=== PATIENT | male | born 1940 | race Asian ===

== ENCOUNTER 2016-04-03 22:41 | Emergency (ER) | payer OTHER, MEDICARE ==
[~2016-04-03] VITALS: Ht 172.7 cm; Wt 88.5 kg
[~2016-04-03 22:41] MED LIST: ASPI-1063
[2016-04-03 22:45] VITALS: BP 174/94; PULSE 73; RESP 18; TEMP 97; O2SAT 98
--- NOTE | 2016-04-03 23:05 | NUR ---
Placed in room 04 . Placed on clinical research monitor, blood pressure machine and pulse oximeter. To gown for exam. Side rails up.
--- NOTE | 2016-04-03 23:12 | NUR ---
Patient to ER C/O right side lateral rib pain 8/ radiating to mid chest. Patient states "the pain woke me up, i am scared it is my heart" AAOx4, unlabored breathing, no signs of acute distress.
--- NOTE | 2016-04-03 23:14 | NUR ---
ER MD Vides at bedside for evaluation
[2016-04-03] MEDS ORDERED: HYDROcodone/ACETAMIN 5-325 MG TAB (NORCO/ VICODIN) PO ONE (23:30)
[2016-04-03] MEDS ORDERED: LORazepam 1 MG TABLET PO ONE (23:30)
[2016-04-03 23:42] LABS: BASOPHILS % (AUTO) 0.7 % (0.0-2.0); EOSINOPHILS # (AUTO) 0.2 K/uL (0.0-0.4); EOSINOPHILS % (AUTO) 2.7 % (0.0-4.0); HEMATOCRIT 41.5 % (36-54); LYMPHOCYTES % (AUTO) 30.5 % (20.5-51.5); MEAN CORPUSCULAR HEMOGLOBIN 30 pg (27-31); MEAN CORPUSCULAR HGB CONC 34 % (32-36); MEAN CORPUSCULAR VOLUME 88 fL (79.0-98.0); MONOCYTES # (AUTO) 0.8 K/uL (0.0-1.0); MONOCYTES % (AUTO) 11.9 % (1.7-9.3); NEUTROPHILS # (AUTO) 3.4 K/uL (1.8-7.7); NEUTROPHILS % (AUTO) 54.2 % (40.0-70.0); PLATELET COUNT (AUTO) 191 K/uL (130-430); RED BLOOD CELL COUNT(AUTO) 4.71 MIL/uL (4.2-6.2); RED CELL DISTRIBUTION WIDTH 12.8 % (9.0-15.0); WHITE BLOOD COUNT (AUTO) 6.4 K/uL (4.8-10.8)
[2016-04-03 23:52] LABS: ANION GAP 7 (5-15); CALCIUM 9.2 mg/dL (8.4-11.0); CHLORIDE 103 mmol/L (98-107); CREATININE 0.98 mg/dL (0.55-1.30); GLUCOSE 113 mg/dL (70-99); POTASSIUM 3.4 mmol/L (3.5-5.1); SODIUM SERUM 141 mmol/L (136-145); UREA NITROGEN, BLOOD 20 mg/dL (8-21)
[2016-04-04] LABS: ALANINE AMINOTRANSFERASE 29 U/L (12-78); ALBUMIN 3.8 g/dL (3.4-4.8); ASPARTATE AMINOTRANSFERASE 23 U/L (10-37); TOTAL BILIRUBIN 0.5 mg/dL (0.0-1.0); TOTAL PROTEIN, SERUM 7.6 g/dL (6.4-8.3)
--- NOTE | 2016-04-04 00:23 | NUR ---
Friend at bedside. Patient calm, states "i feel better"
[2016-04-04 00:58] VITALS: BP 133/76; PULSE 65; RESP 17; TEMP 97.8; O2SAT 97
--- NOTE | 2016-04-04 00:58 | NUR ---
Patient given written and verbal discharge instructions and verbalizes understanding. ER MD Vides discussed with patient the results and treatment provided. Given copies of tests performed in ER. Patient in stable condition. ID arm band removed. Rx of motrin & norco given. Patient educated on pain management and to follow up with PMD. Pain Scale 0/10. Opportunity for questions provided and answered.
== END 2016-04-04 00:58 | disposition home or self-care (01) ==
LOC: SED 22:41
DX: I10 Essential (primary) hypertension (principal); F41.9 Anxiety disorder, unspecified; Z79.82 Long term (current) use of aspirin
CPT/HCPCS: 36415; 71010; 80053; 84484; 85025; 93005; 99285

== ENCOUNTER 2019-03-09 19:39 | Emergency (ER) | payer OTHER, MEDICARE ==
[~2019-03-09] VITALS: Ht 172.7 cm; Wt 95.3 kg
[~2019-03-09 19:39] MED LIST changes: -ASPI-1063; +ASPI-1153
[2019-03-09 19:59] VITALS: BP_SYST 150
[2019-03-09 22:25] VITALS: BP_SYST 142
== END 2019-03-09 22:25 | disposition home or self-care (01) ==
LOC: SED 19:39
DX: I10 Essential (primary) hypertension (principal); Z79.82 Long term (current) use of aspirin
CPT/HCPCS: 93005; 99283

== ENCOUNTER 2022-09-15 06:11 | Emergency (ER) | payer OTHER, MEDICARE ==
[~2022-09-15] VITALS: Ht 170.2 cm; Wt 81.6 kg
[~2022-09-15 06:11] MED LIST changes: -ASPI-1153; +ASPI-1393
[2022-09-15 06:23] VITALS: BP_SYST 114; PULSE 80; RESP 18; TEMP 98.9; O2SAT 95
--- NOTE | 2022-09-15 06:30 | NUR ---
PT STAYED IN WAITING ROOM AFTER TRIAGE
[2022-09-15] MEDS ORDERED: NIRM1TAB PO ×3 (06:43→07:03)
--- NOTE | 2022-09-15 06:45 | NUR ---
ER at bedside examining patient.
[2022-09-15 07:02] VITALS: BP_SYST 114; PULSE 80; RESP 18; TEMP 98.9; O2SAT 95
--- NOTE | 2022-09-15 07:04 | NUR ---
Patient given written and verbal discharge instructions and verbalizes understanding. ER MD discussed with patient the results and treatment provided. Patient in stable condition. ID arm band removed. Rx of PAXLOVID CO PACK given. Patient educated on COVID-19 PREVENT THE SPREAD OF COVID-19 management and to follow up with PMD. Pain Scale 0. Opportunity for questions provided and answered. Medication side effect fact sheet provided.
== END 2022-09-15 07:04 | disposition home or self-care (01) ==
LOC: SED 06:11
DX: U07.1 COVID-19 (principal); R05.9 Cough, unspecified; R50.9 Fever, unspecified; R53.81 Other malaise; I10 Essential (primary) hypertension; Z79.899 Other long term (current) drug therapy
CPT/HCPCS: 36415; 99283

== ENCOUNTER 2023-08-10 15:47 | Emergency (ER) | payer OTHER, MEDICARE ==
[~2023-08-10] VITALS: Ht 172.7 cm; Wt 90.7 kg
[~2023-08-10 15:47] MED LIST changes: +NIRM1TAB PO
[2023-08-10 16:13] VITALS: BP_SYST 113; PULSE 73; RESP 16; TEMP 97.4; O2SAT 96
[2023-08-10 16:41] LABS: BASOPHILS # (AUTO) 0.1 K/uL (0.0-0.2); EOSINOPHILS # (AUTO) 0.2 K/uL (0.0-0.4)
[2023-08-10 16:47] LABS: EOSINOPHILS % (AUTO) 2.5 % (0.0-4.0); HEMATOCRIT 34.9 % (36-54); LYMPHOCYTES # (AUTO) 1.7 K/uL (1.0-5.5); LYMPHOCYTES % (AUTO) 17.4 % (20.5-51.5); MEAN CORPUSCULAR HEMOGLOBIN 30 pg (27-31); MEAN CORPUSCULAR HGB CONC 34 % (32-36); MEAN CORPUSCULAR VOLUME 88 fL (79.0-98.0); MONOCYTES % (AUTO) 10.4 % (1.7-9.3); NEUTROPHILS # (AUTO) 6.5 K/uL (1.8-7.7); NEUTROPHILS % (AUTO) 68.7 % (40.0-70.0); RED BLOOD CELL COUNT(AUTO) 3.98 MIL/uL (4.2-6.2); RED CELL DISTRIBUTION WIDTH 13.6 % (9.0-15.0); WHITE BLOOD COUNT (AUTO) 9.5 K/uL (4.8-10.8)
[2023-08-10 16:54] LABS: ANION GAP 8 (5-15); CALCIUM 8.7 mg/dL (8.4-11.0); CARBON DIOXIDE 27 mmol/L (23-29); CHLORIDE 108 mmol/L (98-107); GLUCOSE 83 mg/dL (74-106); POTASSIUM 3.7 mmol/L (3.5-5.1); SODIUM SERUM 143 mmol/L (136-145); UREA NITROGEN, BLOOD 22 mg/dL (8-21)
[2023-08-10] MEDS ORDERED: CEFU250T85 PO (17:24)
[2023-08-10 17:26] LABS: PLATELET COUNT (AUTO) 202 K/uL (130-430)
[2023-08-10 17:33] VITALS: BP_SYST 113; PULSE 73; RESP 16; TEMP 97.4; O2SAT 96
== END 2023-08-10 17:32 | disposition home or self-care (01) ==
LOC: SED 15:47
DX: L03.116 Cellulitis of left lower limb (principal); L03.115 Cellulitis of right lower limb; I10 Essential (primary) hypertension
CPT/HCPCS: 36415; 80048; 83605; 85025; 87040; 93970; 99284

== ENCOUNTER 2023-10-30 07:48 | Emergency (ER) | payer OTHER, MEDICARE ==
[~2023-10-30] VITALS: Ht 172.7 cm; Wt 86.6 kg
[~2023-10-30 07:48] MED LIST changes: +CEFU250T85 PO
[2023-10-30 08:07] VITALS: BP_SYST 140; PULSE 51; RESP 12; TEMP 97.4; O2SAT 96
[2023-10-30 08:43] LABS: BASOPHILS % (AUTO) 0.6 % (0.0-2.0); EOSINOPHILS # (AUTO) 0.1 K/uL (0.0-0.4); EOSINOPHILS % (AUTO) 2.2 % (0.0-4.0); HEMATOCRIT 37.4 % (36-54); HEMOGLOBIN 12.6 g/dL (14.0-18.0); LYMPHOCYTES % (AUTO) 25.7 % (20.5-51.5); MEAN CORPUSCULAR HEMOGLOBIN 30 pg (27-31); MEAN CORPUSCULAR HGB CONC 34 % (32-36); MEAN CORPUSCULAR VOLUME 89 fL (79.0-98.0); MONOCYTES # (AUTO) 0.4 K/uL (0.0-1.0); MONOCYTES % (AUTO) 10.7 % (1.7-9.3); NEUTROPHILS # (AUTO) 2.3 K/uL (1.8-7.7); NEUTROPHILS % (AUTO) 60.8 % (40.0-70.0); PLATELET COUNT (AUTO) 152 K/uL (130-430); RED BLOOD CELL COUNT(AUTO) 4.22 MIL/uL (4.2-6.2); RED CELL DISTRIBUTION WIDTH 14.1 % (9.0-15.0); WHITE BLOOD COUNT (AUTO) 3.8 K/uL (4.8-10.8)
[2023-10-30 08:49] LABS: ANION GAP 10 (5-15); CALCIUM 8.5 mg/dL (8.4-11.0); CARBON DIOXIDE 27 mmol/L (23-29); CHLORIDE 105 mmol/L (98-107); CREATININE 0.98 mg/dL (0.55-1.30); GLUCOSE 116 mg/dL (74-106); POTASSIUM 3.5 mmol/L (3.5-5.1); SODIUM SERUM 142 mmol/L (136-145); UREA NITROGEN, BLOOD 18 mg/dL (8-21)
[2023-10-30] MEDS: NACL 0.9% 1,000 ML IV ONE (09:08)
[2023-10-30] MEDS: MECLIZINE HCL 25 MG TABLET (ANITVERT) PO ONE (09:08)
[2023-10-30] MEDS ORDERED: MECL-225 PO (09:50)
[2023-10-30 10:13] VITALS: TEMP 97.3
[2023-10-30 10:15] VITALS: BP_SYST 133; PULSE 55; RESP 16; O2SAT 95
== END 2023-10-30 10:21 | disposition home or self-care (01) ==
LOC: SED 07:48
DX: H81.10 Benign paroxysmal vertigo, unspecified ear (principal); E86.0 Dehydration; I10 Essential (primary) hypertension; E78.5 Hyperlipidemia, unspecified; Z98.890 Other specified postprocedural states; Z85.01 Personal history of malignant neoplasm of esophagus; Z79.899 Other long term (current) drug therapy; Z79.2 Long term (current) use of antibiotics; Z79.82 Long term (current) use of aspirin
CPT/HCPCS: 99283; 96360; 80048; 85025; 36415; J7030; J8597